=== PATIENT | male | born 1960 | race Caucasian/White ===

== ENCOUNTER 2017-09-08 19:45 | Emergency (ER) | payer BC ==
[2017-09-08] MEDS ORDERED: Tetracaine 0.5% 2 ML Bottle ONE (19:50)
[2017-09-08] MEDS ORDERED: Erythromycin Base 0.5% Ophth Oint 3.5 GM Tube ONE (20:15)
== END 2017-09-08 20:20 | disposition home or self-care (01) ==
LOC: LB.ED 19:45
DX: S05.01XA Injury of conjunctiva and corneal abrasion without foreign body, right eye, initial encounter (principal); W22.8XXA Striking against or struck by other objects, initial encounter
CPT/HCPCS: 99283; A9270-GY

== ENCOUNTER 2017-09-14 15:08 | Observation (INO) | payer BC ==
[2017-09-14] MEDS ORDERED: Sodium Chloride 0.9% 10 ML Syringe FLUSH PRN (17:13)
[2017-09-14] MEDS ORDERED: Lactated Ringers 1,000 ML IV SCH (17:15)
--- NOTE | 2017-09-14 18:46 | PCM.HP ---
H&P History of Present Illness - General Date of Service: 09/14/17 Admit Problem/Dx: Admission Diagnosis/Problem Admission Diagnosis/Problem Chest pain Source of Information: Patient History Limitations: Reports: No Limitations - History of Present Illness Initial Comments - Free Text/Narative: This is a 56yo M with severe sharp stabbing pain of the left chest wall that was not positional or pleuritic. He did notice a short time of difficulty catching his breath but resolved. He noticed the pain move from the left to the right and then back of the chest wall below the nipple line. It is not reproducible and other than the right then back to the left movement it was not radiating. He denies any strenuous activity but was working earlier and noticed the pain at the end of work today. The pain has resolved since he arrived at the ER. He denies other aggravating or improving factors. Onset of Symptoms: Reports: Sudden Duration of Symptoms: Reports: Minutes:, Resolved Prior to Arrival Location: Reports: Chest Quality: Reports: Stabbing Severity: Severe Improves with: Reports: None Worsens with: Reports: None Associated Symptoms: Reports: No Other Symptoms - Related Data Allergies/Adverse Reactions: Allergies Allergy/AdvReac Type Severity Reaction Status Date / Time No Known Allergies Allergy Verified 09/14/17 15:22 Home Medications: Home Meds Hydrocortisone Acetate [Anucort-HC] 25 mg RC QPM PRN 05/07/15 [History] Omeprazole 20 mg PO DAILY 05/07/15 [History] atorvaSTATin [Lipitor] 10 mg PO BEDTIME 05/07/15 [History] Calcium Carbonate [Calcium] 1 tab PO DAILY 09/08/17 [History] Sulfamethoxazole/Trimethoprim [Sulfamethoxazole-Tmp Ss Tablet] 1 each PO ASDIRECTED 09/08/17 [History] Tamsulosin [Tamsulosin 24 Hr] 0.4 mg PO BEDTIME 09/08/17 [History] predniSONE 30 mg PO DAILY 09/08/17 [History] Cholecalciferol (Vitamin D3) [Vitamin D3] 1,000 unit PO DAILY 09/14/17 [History] Past Medical History Cardiovascular History: Reports: High Cholesterol, Hypertension Respiratory History: Reports: Other (See Below) Other Respiratory History: Inflammatory Pneumonia Gastrointestinal History: Reports: GERD Genitourinary History: Reports: Prostate Disorder Musculoskeletal History: Reports: Other (See Below) Other Musculoskeletal History: being worked up for RA and Lupus Immunologic History: Reports: Immunosuppression Social & Family History - Family History Family Medical History: Noncontributory - Tobacco Use Smoking Status *Q: Never Smoker - Caffeine Use Caffeine Use: Reports: Coffee - Recreational Drug Use Recreational Drug Use: No H&P Review of Systems - Review of Systems: Review Of Systems: ROS reveals no pertinent complaints other than HPI. Exam - Exam Exam: See Below - Vital Signs Vital Signs: Last Vital Signs Temp 36.4 C 09/14/17 16:30 Pulse 56 L 09/14/17 16:30 Resp 16 09/14/17 16:30 BP 120/73 09/14/17 16:30 Pulse Ox 97 09/14/17 16:30 - Exam General: Alert, Oriented, Cooperative HEENT: PERRLA, Conjunctiva Clear, EACs Clear Neck: Supple, Trachea Midline Lungs: Clear to Auscultation, Normal Respiratory Effort Cardiovascular: Regular Rate, Regular Rhythm GI/Abdominal Exam: Normal Bowel Sounds Back Exam: Normal Inspection Extremities: Normal Inspection Peripheral Pulses: 2+: Dorsalis Pedis (L), Dorsalis Pedis (R) Skin: Warm, Dry, Intact - Patient Data Lab Results Last 24 hrs: Laboratory Results - last 24 hr 09/14/17 09/14/17 Range/Units 15:15 15:15 WBC 10.5 D (4.0-11.0) K/uL RBC 4.84 (4.50-6.50) M/uL Hgb 14.8 (13.0-18.0) g/dL Hct 43.8 (40.0-54.0) % MCV 91 (76-96) fL MCH 30.6 (27.0-32.0) pg MCHC 33.8 (31.0-35.0) g/dL RDW 14.7 (11.0-16.0) % Plt Count 228 (150-400) K/uL MPV 8.9 (6.0-10.0) fL Neut % (Auto) 80.8 H (45.0-70.0) % Lymph % (Auto) 10.4 L (20.0-40.0) % Hardin % (Auto) 8.6 (3.0-10.0) % Eos % (Auto) 0.0 L (1.0-5.0) % Baso % (Auto) 0.2 (0.0-0.5) % Neut # (Auto) 8.51 H (2.00-7.50) K/uL Lymph # (Auto) 1.09 L (1.50-4.00) K/uL Hardin # (Auto) 0.90 H (0.20-0.80) K/uL Eos # (Auto) 0.00 L (0.04-0.40) K/uL Baso # (Auto) 0.02 (0.02-0.10) K/uL Sodium 141 (136-145) mmol/L Potassium 4.1 (3.5-5.1) mmol/L Chloride 105 (98-107) mmol/L Carbon Dioxide 29.0 (21.0-32.0) mmol/L Anion Gap 11.1 (5.0-15.0) mmol/L BUN 20 D (8-26) mg/dL Creatinine 1.03 (0.70-1.30) mg/dL Est Cr Clr Drug Dosing TNP Estimated GFR (MDRD) > 60 (>60) MLS/MIN BUN/Creatinine Ratio 19.4 (6-25) Glucose 112 H (74-100) mg/dL Calcium 8.6 (8.5-10.1) mg/dL Total Bilirubin 0.3 (0.0-1.0) mg/dL AST 15 (15-37) U/L ALT 45 (12-78) U/L Alkaline Phosphatase 68 (46-116) U/L Troponin I < 0.017 (0.000-0.060) ng/mL Total Protein 7.0 (6.4-8.2) g/dL Albumin 3.6 (3.4-5.0) g/dL Globulin 3.4 (2.2-4.2) g/dL Albumin/Globulin Ratio 1.1 (0.8-2.0) Result Diagrams: 09/14/17 15:15 09/14/17 15:15 - Problem List (1) Chest pain SNOMED Code(s): 18854410 ICD Code: R07.9 - CHEST PAIN, UNSPECIFIED Status: Acute Priority: High Current Visit: Yes Qualifiers: Chest pain type: other chest pain Qualified Code(s): R07.89 - Other chest pain; R07.8 - Other chest pain Problem List Initiated/Reviewed/Updated: Yes Orders Last 24hrs: Active Orders 24 hr Category Date Time Status Patient Status [ADT] Routine ADT 09/14/17 15:00 Active EKG Documentation Completion [RC] ASDIRECTED Care 09/14/17 15:31 Active Oxygen Therapy [RC] PRN Care 09/14/17 17:13 Active VTE/DVT Education [RC] Per Unit Routine Care 09/14/17 17:13 Active Vital Signs [RC] Q4H Care 09/14/17 17:13 Active Regular Diet [DIET] Diet 09/14/17 Dinner Ordered CULTURE MRSA SURVEY [RM] Stat Lab 09/14/17 15:53 Ordered TROPONIN I [CHEM] AM Lab 09/15/17 05:11 Ordered Lactated Ringers [Ringers, Lactated] 1,000 ml Med 09/14/17 17:15 Active IV ASDIRECTED Sodium Chloride 0.9% [Saline Flush] Med 09/14/17 17:13 Active 10 ml FLUSH ASDIRECTED PRN Peripheral IV Insertion Adult [OM.PC] Routine Oth 09/14/17 17:13 Ordered Resuscitation Status Routine Resus Stat 09/14/17 17:13 Ordered Medication Orders Lactated Ringer's (Ringers, Lactated) 1,000 mls @ 125 mls/hr IV ASDIRECTED ERROL Sodium Chloride (Saline Flush) 10 ml FLUSH ASDIRECTED PRN PRN Reason: Keep Vein Open Assessment/Plan Comment:: Patient to be placed in observation in telemetry for Chest pain protocol and serial troponins. We will monitor vitals and continue routine meds. Pain meds as needed.
[2017-09-14] MEDS ORDERED: Tamsulosin 0.4 MG Cap.ER PO SCH (20:30)
[2017-09-14] MEDS ORDERED: atorvaSTATin 10 MG Tab PO SCH (20:30)
[2017-09-14] MEDS ORDERED: [UNRECOGNIZED DRUG - OTHER] PO SCH (22:00)
[2017-09-14] MEDS ORDERED: TRIMETHOPRIM PO SCH (22:00)
[2017-09-14] MEDS ORDERED: SULFAMETHOXAZOLE PO SCH (22:00)
[2017-09-15] MEDS ORDERED: Omeprazole 20 MG Cap.CR PO SCH (07:00)
[2017-09-15] MEDS ORDERED: Cholecalciferol (Vitamin D3) 1,000 Unit Tab PO SCH ×2 (08:00→20:00)
[2017-09-15] MEDS ORDERED: Calcium Carbonate 600 MG Tab PO SCH ×2 (08:00→20:00)
[2017-09-15] MEDS ORDERED: predniSONE 10 MG Tab PO SCH (08:00)
--- NOTE | 2017-09-15 21:15 | PCM.DCSUM1 ---
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 Frost with chest pain on the left side to rule out TN. He was pain free through the hospital course but he had a 10 beat run of Ventricular Tachycardia. O: AVSS Heart RRR without extra sounds. No chest wall tenderness. Abdomen is benign. Neuro no focal deficits. No pedal edema. EKG's and Troponins were negative x 3. Chest x-ray shows no mediastinal widening and D-dimer is negative. A; Chest pain with no apparent TN but with 10 beat run of Ventricular tachycardia. P: He will be transfered to [facility] under the care of Dr. Hall and cardiology will be consulted for possible heart cath. Diagnosis: Stroke: No - Discharge Data Discharge Date: 09/15/17 Discharge Disposition: DC/Tfer to Acute Hospital 02 Condition: Stable - Discharge Plan Home Medications: Home Meds Hydrocortisone Acetate [Anucort-HC] 25 mg RC QPM PRN 05/07/15 [History] Omeprazole 20 mg PO DAILY 05/07/15 [History] atorvaSTATin [Lipitor] 10 mg PO BEDTIME 05/07/15 [History] Calcium Carbonate [Calcium] 1 tab PO DAILY 09/08/17 [History] Sulfamethoxazole/Trimethoprim [Sulfamethoxazole-Tmp Ss Tablet] 1 each PO ASDIRECTED 09/08/17 [History] Tamsulosin [Tamsulosin 24 Hr] 0.4 mg PO BEDTIME 09/08/17 [History] predniSONE 30 mg PO DAILY 09/08/17 [History] Cholecalciferol (Vitamin D3) [Vitamin D3] 1,000 unit PO DAILY 09/14/17 [History] Forms: ED Department Discharge Referrals: PCP,None [Primary Care Provider] - - Patient Data Vitals - Most Recent: Last Vital Signs Temp 36.6 C 09/15/17 16:00 Pulse 57 L 09/15/17 16:00 Resp 16 09/15/17 16:00 BP 112/67 09/15/17 16:00 Pulse Ox 96 09/15/17 16:00 Weight - Most Recent: 110.677 kg Lab Results - Last 24 hrs: Laboratory Results - last 24 hr 09/15/17 09/15/17 Range/Units 06:45 06:50 D-Dimer, Quantitative < 100 (0-400) ng/mL Troponin I < 0.017 (0.000-0.060) ng/mL PANCHO Results - Last 24 hrs: Microbiology 09/14/17 20:45 MRSA Surveillance Culture - Final Nares, Unspecified NO MRSA ISOLATED Med Orders - Current: Current Medications Discontinued Medications Atorvastatin Calcium (Lipitor) 10 mg PO BEDTIME [facility] Last Admin: 09/14/17 21:08 Dose: 10 mg Calcium Carbonate/Glycine (Calcium Carbonate) 600 mg PO DAILY [facility] Last Admin: 09/15/17 15:44 Dose: Not Given Calcium Carbonate/Glycine (Calcium Carbonate) 600 mg PO DAILY@1999 [facility] Cholecalciferol (Vitamin D3) 1,000 units PO DAILY [facility] Last Admin: 09/15/17 15:45 Dose: Not Given Cholecalciferol (Vitamin D3) 1,000 units PO DAILY@1999 [facility] Lactated Ringer's (Ringers, Lactated) 1,000 mls @ 125 mls/hr IV ASDIRECTED [facility] Non-Formulary Medication (Sulfamethoxazole/Trimethoprim [Sulfamethoxazole-Tmp Ss Tablet]) 1 each PO ASDIRECTED [facility] Omeprazole (Omeprazole) 20 mg PO ACBREAKFAST [facility] Last Admin: 09/15/17 08:07 Dose: 20 mg Prednisone (Prednisone) 30 mg PO DAILY [facility] Last Admin: 09/15/17 08:07 Dose: 30 mg Sodium Chloride (Saline Flush) 10 ml FLUSH ASDIRECTED PRN PRN Reason: Keep Vein Open Tamsulosin HCl (Flomax) 0.4 mg PO BEDTIME [facility] Last Admin: 09/14/17 21:08 Dose: 0.4 mg
--- NOTE | 2017-09-16 18:20 | CR ---
DATE OF SERVICE: 09/15/2017 CLINICAL DATA: Chest pain. PA AND LATERAL CHEST: Comparison is made to a prior exam dated 06/26/2017. The heart size is within normal limits. There are persistent densities in both lung bases consistent with basilar atelectasis or infiltrate. Both lung bases, do however, appear improved when compared to the prior exam. No new abnormality. No pneumothorax. No pleural effusions. [id number] MTDD
== END 2017-09-15 17:28 ==
LOC: LB.ED 15:08 → LB.MS 16:20 → UNDOADMOB 16:20 → LB.MS 17:13
PROVIDERS: ADMIT Family Medicine; ATTEND Family Medicine
DX: R07.9 Chest pain, unspecified (principal); I10 Essential (primary) hypertension; I47.2 Ventricular tachycardia; J42 Unspecified chronic bronchitis; E78.00 Pure hypercholesterolemia, unspecified; K21.9 Gastro-esophageal reflux disease without esophagitis; Z79.899 Other long term (current) drug therapy
CPT/HCPCS: 36415; 71046; 80053; 84484; 85025; 85379; 93005; 99285; A9270; G0378

== ENCOUNTER → 2019-02-13 | Outpatient (CLI) | payer BC | LOC: LB.LAB 08:25 | PROVIDERS: ATTEND Internal Medicine | DX: J84.9 Interstitial pulmonary disease, unspecified (principal) | CPT/HCPCS: 36415; 80053; 85025 ==

== ENCOUNTER → 2019-03-21 | Outpatient (CLI) | payer BC | LOC: LB.LAB 08:15 | PROVIDERS: ATTEND Internal Medicine | DX: J84.9 Interstitial pulmonary disease, unspecified (principal) | CPT/HCPCS: 36415; 80053; 85025 ==

== ENCOUNTER 2021-05-21 08:11 | Emergency (ER) | payer BC ==
[2021-05-21] MEDS ORDERED: Gentamicin 0.3% Ophth Soln 5 ML Bottle ONE (08:30)
== END 2021-05-21 08:45 | disposition home or self-care (01) ==
LOC: LB.ED 08:11
DX: H10.32 Unspecified acute conjunctivitis, left eye (principal); E78.00 Pure hypercholesterolemia, unspecified; I10 Essential (primary) hypertension; K21.9 Gastro-esophageal reflux disease without esophagitis; Z79.899 Other long term (current) drug therapy
CPT/HCPCS: 99282; A9270-GY

== ENCOUNTER 2021-07-16 09:18 | Emergency (ER) | payer BC ==
[2021-07-16] MEDS ORDERED: Albuterol/Ipratropium 3.0-0.5 MG/3 ML Neb Soln NEB PRN (10:18)
[2021-07-16] MEDS ORDERED: Benzonatate 100 MG Cap ONE (10:20)
[2021-07-16] MEDS ORDERED: Azithromycin 250 MG Tab ONE (10:20)
[2021-07-16] MEDS ORDERED: Albuterol 8 GM Inhaler ONE ×2 (10:20→10:21)
== END 2021-07-16 10:35 | disposition home or self-care (01) ==
LOC: LB.ED 09:18
DX: J70.4 Drug-induced interstitial lung disorders, unspecified (principal); T50.905A Adverse effect of unspecified drugs, medicaments and biological substances, initial encounter; E78.00 Pure hypercholesterolemia, unspecified; K21.9 Gastro-esophageal reflux disease without esophagitis; Z79.899 Other long term (current) drug therapy; Z79.82 Long term (current) use of aspirin
CPT/HCPCS: 36415; 71045; 80053; 85025; 99284; A9270; J7620

== ENCOUNTER 2023-10-14 13:34 | Emergency (ER) | payer OTHER ==
[2023-10-14] MEDS: Acetaminophen 500 MG Tab PO ONE (14:59)
[2023-10-14] MEDS ORDERED: traMADol 50 MG Tab ONE (15:00)
[2023-10-14] MEDS: traMADol 50 MG Tab PO ONE (15:00)
[2023-10-15] MEDS: traMADol 50 MG Tab ONE (11:42)
[2023-10-15] MEDS: Acetaminophen 500 MG Tab ONE (11:42)
== END 2023-10-14 15:35 | disposition home or self-care (01) ==
LOC: LB.ED 13:34
DX: S27.321A Contusion of lung, unilateral, initial encounter (principal); I10 Essential (primary) hypertension; E78.00 Pure hypercholesterolemia, unspecified; K21.9 Gastro-esophageal reflux disease without esophagitis; Z79.899 Other long term (current) drug therapy; Z79.82 Long term (current) use of aspirin; V86.05XA Driver of 3- or 4- wheeled all-terrain vehicle (ATV) injured in traffic accident, initial encounter
CPT/HCPCS: 71250; 73080-LT; 73562-LT; 99284; A9270-GY

== ENCOUNTER 2024-05-22 12:26 | Emergency (ER) | payer BC ==
[2024-05-22] MEDS: Ondansetron 4 MG/2 ML SDV IVPUSH ONE (12:53)
[2024-05-22] MEDS: Sodium Chloride 0.9% 1,000 ML IV ONE (12:59)
[2024-05-22 13:00] LABS: BASOPHILS ABSOLUTE AUTO 0.03 K/uL (0.02-0.10); BASOPHILS PERCENT AUTO 0.2 % (0.0-0.5); HEMATOCRIT 44.5 % (40.0-54.0); HEMOGLOBIN 14.9 g/dL (13.0-18.0); LYMPHOCYTES ABSOLUTE AUTO 0.55 K/uL (1.50-4.00); LYMPHOCYTES PERCENT AUTO 2.8 % (20.0-40.0); MEAN CORPUSCULAR HGB CONC 33.5 g/dL (31.0-35.0); MEAN CORPUSCULAR VOLUME 90 fL (76-96); MEAN PLATELET VOLUME 8.9 fL (6.0-10.0); MONOCYTES PERCENT AUTO 5.1 % (3.0-10.0); NEUTROPHILS ABSOLUTE AUTO 18.01 K/uL (2.00-7.50); NEUTROPHILS PERCENT AUTO 91.9 % (45.0-70.0); PLATELET COUNT,PLT 195 K/uL (150-400); RED BLOOD CELL COUNT 4.97 M/uL (4.50-6.50); RED CELL DISTRIBUTION WIDTH 13.8 % (11.0-16.0); WHITE BLOOD CELL COUNT,WBC 19.6 K/uL (4.0-11.0)
[2024-05-22 13:12] LABS: APPEARANCE,URINE CLOUDY (CLEAR); COLOR,URINE YELLOW; PH,URINE 8.5 (5.0-8.0); PROTEIN,URINE 100 mg/dL (NEGATIVE)
[2024-05-22 13:13] LABS: BILIRUBIN,URINE NEGATIVE (NEGATIVE); GLUCOSE,URINE NEGATIVE (NEGATIVE); KETONES,URINE NEGATIVE (NEGATIVE); LEUKOCYTE ESTERASE,URINE TRACE (NEGATIVE); NITRITE,URINE NEGATIVE (NEGATIVE); OCCULT BLOOD,URINE MODERATE (NEGATIVE); SQUAMOUS EPITHELIAL CELLS,UR OCCASIONAL /HPF; UROBILINOGEN,URINE 0.2 E.U./dL (0.2-1.0); UROTHELIAL CELLS,URINE OCCASIONAL /HPF; WBC CLUMPS,URINE FEW /HPF; WBC,URINE 50-75 /HPF
[2024-05-22 13:14] LABS: BACTERIA,URINE FEW /HPF
[2024-05-22] MEDS: Acetaminophen 325 MG Tab PO ONE (13:16)
[2024-05-22 13:30] LABS: A/G RATIO 0.9 (0.8-2.0); ALBUMIN 3.5 g/dL (3.4-5.0); ANION GAP 14.3 mmol/L (5.0-15.0); BILIRUBIN TOTAL 0.6 mg/dL (0.0-1.0); BUN/CREATININE RATIO 14.3 (6-25); CARBON DIOXIDE,CO2 26.7 mmol/L (21.0-32.0); CREATININE 1.26 mg/dL (0.70-1.30); EST CRCL DRUG DOSING (CG) 65.57 mL/min; PROTEIN TOTAL,TP 7.3 g/dL (6.4-8.2)
[2024-05-22 13:55] LABS: INFLUENZA A NAA NEGATIVE (NEGATIVE); INFLUENZA B NAA NEGATIVE (NEGATIVE); RESPIRATORY SYNCYTIAL VIR NAA NEGATIVE (NEGATIVE)
[2024-05-22 14:00] LABS: CORONAVIRUS COVID-19 NAA NEGATIVE (NEGATIVE)
[2024-05-22] MEDS: Sodium Chloride 0.9% 1,000 ML IV SCH (14:08)
[2024-05-22] MEDS: Levofloxacin 500 MG Tab PO ONE (15:20)
== END 2024-05-22 16:20 | disposition home or self-care (01) ==
LOC: LB.ED 12:26
DX: N12 Tubulo-interstitial nephritis, not specified as acute or chronic (principal); K21.9 Gastro-esophageal reflux disease without esophagitis; E78.00 Pure hypercholesterolemia, unspecified; Z79.82 Long term (current) use of aspirin; Z79.899 Other long term (current) drug therapy; Z86.16 Personal history of COVID-19
CPT/HCPCS: 0241U; 36415; 74176; 80053; 81001; 83605; 85025; 96361; 96374; 99283; 99284-25; A9270-GY; J2405; J7030

== ENCOUNTER 2025-02-13 11:37 | Emergency (ER) | payer BC ==
[2025-02-13] MEDS: Tetracaine HCl/PF 0.5% 4 ML Bottle EYERT ONE (12:43)
[2025-02-13] MEDS: Distilled Water Ophth Irrig Soln 120 ML Bottle EYERT ONE (12:43)
== END 2025-02-13 13:00 | disposition home or self-care (01) ==
LOC: LB.ED 11:37
DX: T15.01XA Foreign body in cornea, right eye, initial encounter (principal); I10 Essential (primary) hypertension; E78.00 Pure hypercholesterolemia, unspecified; K21.9 Gastro-esophageal reflux disease without esophagitis; Z86.16 Personal history of COVID-19; Z79.82 Long term (current) use of aspirin; Z79.899 Other long term (current) drug therapy; X58.XXXA Exposure to other specified factors, initial encounter
CPT/HCPCS: 65220; 99283-25